=== PATIENT | male | born 1960 | race Caucasian/White ===

== ENCOUNTER 2018-12-27 17:24 | Emergency (ER) | payer BC ==
[~2018-12-27] VITALS: Ht 172.7 cm; Wt 68.9 kg
[~2018-12-27 17:24] MED LIST: CYCL5TAB PO; ESCI5TAB PO; FLUC100T3 PO; TRAZ100T2 PO; [UNRECOGNIZED DRUG - CODE] EX
[2018-12-27] MEDS ORDERED: cefTRIAXone 1GM/50ML D5W 50 ML IV ONE (18:00)
[2018-12-27] MEDS ORDERED: ONDANSETRON HCL 4 MG/2 ML VIAL IV ONE ×2 (18:00→20:45)
[2018-12-27] MEDS ORDERED: MORPHINE SULFATE 4 MG/ML SYR/VIAL IV ONE ×2 (18:00→20:45)
[2018-12-27] MEDS ORDERED: LIDOCAINE 2% (LOCAL ANESTH.) PF 5ml SDV ONE (19:49)
[2018-12-27] MEDS ORDERED: LIDOCAINE 1% HCL (LOCAL ANESTH.) INJ 20ML MDV ONE (19:50)
[2018-12-27] MEDS ORDERED: ONDANSETRON HCL 4 MG/2 ML VIAL ONE (19:56)
[2018-12-27] MEDS ORDERED: MORPHINE SULFATE 4 MG/ML SYR/VIAL ONE (19:56)
[2018-12-27 20:00] VITALS: BP 125/84
[2018-12-27] MEDS ORDERED: BACITRACIN TOP OINT 1 UD PKG TOP ONE (20:10)
[2018-12-27] MEDS ORDERED: NEOMYCIN-BACITRACIN-POLYM UNITDOSE PKG TOP OINT TOP ONE (20:30)
[2018-12-27] MEDS ORDERED: LIDOCAINE 1% HCL (LOCAL ANESTH.) INJ 20ML MDV ID ONE (20:45)
[2018-12-27] MEDS ORDERED: LIDOCAINE 2% (LOCAL ANESTH.) PF 5ml SDV ID ONE (20:45)
== END 2018-12-27 21:07 | disposition home or self-care (01) ==
LOC: ER 17:24
DX: S51.811A Laceration without foreign body of right forearm, initial encounter (principal); I10 Essential (primary) hypertension; Z88.6 Allergy status to analgesic agent; W26.0XXA Contact with knife, initial encounter; Y93.89 Activity, other specified; Y99.8 Other external cause status; Y92.89 Other specified places as the place of occurrence of the external cause
CPT/HCPCS: 12004; 96365; 96375; 96376; 99283; J0696; J2001; J2270; J2405